=== PATIENT | female | born 1990 | race Caucasian/White ===

== ENCOUNTER 2020-12-24 11:38 | Emergency (ER) | payer OTHER, MEDICAID, SELFPAY ==
[2020-12-24 11:46] VITALS: BP 111/63; PULSE 83; RESP 16; TEMP 36.4; O2SAT 99; BMI 28.3
[2020-12-24 13:15] VITALS: BP 110/60; PULSE 70; RESP 15; O2SAT 99
[2020-12-24 13:47] LABS: Amorphous Sediment Urine 2+; Bacteria Urine Moderate (10-30); RBC Urine None Seen (0-5/HPF); Squamous Epithelial Cell Urine 10-30 /HPF (0-5/HPF); WBC Urine 5-10/HPF (0-5/HPF)
[2020-12-24 13:48] LABS: Culture Indicated Urine Cult Not Indicated
[2020-12-24] MEDS: LIDOCAINE 1% (PF) 4 ML (13:48)
[2020-12-24] MEDS: AZITHROMYCIN 250 MG TABLET 1000 MG PO (13:48)
[2020-12-24] MEDS: cefTRIAXone 2,000 MG VIAL 1000 MG IM (13:48)
--- NOTE | 2020-12-24 13:49 | ED.BACK ---
HPI - Back Pain/Injury <EDDIE Fleming - Last Filed: 12/24/20 15:42> General Chief Complaint: Back Pain/Injury Stated Complaint: poss Kidney infection Time Seen by Provider: 12/24/20 13:20 History of Present Illness HPI Narrative: 30-year-old female presents to the emergency department with complaint of lower abdominal pain which she states started 2 weeks ago. She has had 3 emergency department visits for this in the last 2 weeks and received treatment for chlamydia at [facility] ED 2 weeks ago and did not fill the doxycycline prescription. She states that she has no money, and she is going through a change of her insurance and has not been able to get her medication filled. She states that she does not have a way to pay for anything [id number]. She reports that her vaginal discharge is still abnormal, she reports that her symptoms got better for a couple days and then got worse again. She denies having any fever, states that maybe she is having some chills today here in the emergency department, her vital signs are within normal limits she is afebrile at this time. She reports that she is concerned about kidney stones she states that she used to have kidney infections when she has to drink alcohol. She reports that she does not drink alcohol any longer. She denies any dizziness, back pain, right lower quadrant pain, abdominal tenderness, her last bowel movement was last night and it was normal for her, she denies any vomiting. MD Complaint: other Onset (ago): week(s) (2) Duration: progressively worsening Similar Symptoms Previously: Yes Related Data Allergies Allergy/AdvReac Type Severity Reaction Status Date / Time No Known Drug Allergies Allergy Verified 12/24/20 13:40 Review of Systems <EDDIE Fleming - Last Filed: 12/24/20 15:42> Review of Systems Narrative: General: denies fever, chills Head/Neck: denies headache, neck pain Eyes: denies visual changes, eye pain Cardio: denies chest pain, palpitations Respiratory: denies shortness of breath, cough GI: Endorses generalized lower abdominal pain and pelvic discomfort, endorses nausea, denies vomiting, or diarrhea, denies abdominal tenderness or severe pain : denies dysuria, hematuria, endorses vaginal discharge is abnormal and similar to when she was diagnosed with chlamydia 2 weeks ago. MSK: denies joint pain, muscle weakness Skin: denies rash, itching Neuro: denies numbness, tingling Patient History <EDDIE Fleming - Last Filed: 12/24/20 15:42> Social History Smoking Status: Current every day smoker Smoking Status: Current every day smoker tobacco type: cigarettes Substance Use Type: marijuana Exam <EDDIE Fleming - Last Filed: 12/24/20 15:42> Narrative Exam Narrative: Independently reviewed vitals signs and nursing notes. General: Awake, alert, nontoxic appearing, no cardiorespiratory distress, afebrile Head/Neck: Atraumatic, neck full range of motion Eyes: EOMI, conjunctiva normal Nose: nares patent, no rhinorrhea Mouth/Throat: moist mucus membranes, posterior pharynx normal, no oral lesions Cardio: Regular rate and rhythm, no peripheral edema, no diaphoresis Respiratory: respirations unlabored without wheezing, stridor, or rales. No retractions. GI: Abdomen soft, nontender to palpation, MSK: Moves all extremities, neurovascularly intact Skin: Normal capillary refill, no rash, normal color for ethnicity Neuro: Normal speech and cognition, normal gait Initial Vital Signs Initial Vital Signs: Vital Signs Temperature 97.5 F L 12/24/20 11:46 Pulse Rate 83 12/24/20 11:46 Respiratory Rate 16 12/24/20 11:46 Blood Pressure 111/63 12/24/20 11:46 Pulse Oximetry 99 12/24/20 11:46 <David Arnold MD - Last Filed: 12/24/20 18:30> Initial Vital Signs Initial Vital Signs: Vital Signs Temperature 97.5 F L 12/24/20 11:46 Pulse Rate 83 12/24/20 11:46 Respiratory Rate 16 12/24/20 11:46 Blood Pressure 111/63 12/24/20 11:46 Pulse Oximetry 99 12/24/20 11:46 Course <EDDIE Fleming - Last Filed: 12/24/20 15:42> Orders Ordered: ED Orders 12/24/20 11:55 Chlamydia Gonorrhea PCR -URINE Stat Urine Microscopic Stat 12/24/20 14:21 Complete Blood Count NO DIFF Stat Comprehensive Metabolic Panel Stat Discontinued Medications Azithromycin (Azithromycin 250 Mg Tablet) 1,000 mg PO NOW ONE Stop: 12/24/20 13:37 Last Admin: 12/24/20 13:48 Dose: 1,000 mg Documented by: ÁLVARO Ceftriaxone Sodium (Ceftriaxone 2,000 Mg Vial) 1,000 mg IM NOW ONE Stop: 12/24/20 13:37 Last Admin: 12/24/20 13:48 Dose: 1,000 mg Documented by: ÁLVARO Doxycycline Hyclate (Doxycycline Hyclate 100 Mg Tablet) 100 mg PO NOW ONE Stop: 12/24/20 13:37 Last Admin: 12/24/20 13:49 Dose: Not Given Documented by: ÁLVARO Vital Signs Vital signs: Vital Signs - 8 hr 12/24/20 11:46 12/24/20 13:15 Temperature 97.5 F L Pulse Rate 83 70 Respiratory Rate 16 15 Blood Pressure 111/63 110/60 Pulse Oximetry 99 99 <David Arnold MD - Last Filed: 12/24/20 18:30> Orders Ordered: ED Orders 12/24/20 11:55 Chlamydia Gonorrhea PCR -URINE Stat Urine Microscopic Stat 12/24/20 14:21 Complete Blood Count NO DIFF Stat Comprehensive Metabolic Panel Stat Discontinued Medications Azithromycin (Azithromycin 250 Mg Tablet) 1,000 mg PO NOW ONE Stop: 12/24/20 13:37 Last Admin: 12/24/20 13:48 Dose: 1,000 mg Documented by: ÁLVARO Ceftriaxone Sodium (Ceftriaxone 2,000 Mg Vial) 1,000 mg IM NOW ONE Stop: 12/24/20 13:37 Last Admin: 12/24/20 13:48 Dose: 1,000 mg Documented by: ÁLVARO Doxycycline Hyclate (Doxycycline Hyclate 100 Mg Tablet) 100 mg PO NOW ONE Stop: 12/24/20 13:37 Last Admin: 12/24/20 13:49 Dose: Not Given Documented by: ÁLVARO Vital Signs Vital signs: Vital Signs - 8 hr 12/24/20 11:46 12/24/20 13:15 Temperature 97.5 F L Pulse Rate 83 70 Respiratory Rate 16 15 Blood Pressure 111/63 110/60 Pulse Oximetry 99 99 MDM - Back Pain/Injury <EDDIE Fleming - Last Filed: 12/24/20 15:42> Lab Data Result diagrams: 12/24/20 14:21 12/24/20 14:21 Labs: Lab Results 12/24/20 12/24/20 12/24/20 Range/Units 11:55 11:55 14:21 WBC 8.9 (4.5-11.0) X10^3/uL RBC 3.95 L (4.0-5.2) X10^6/uL Hgb 12.1 (12.0-16.0) g/dL Hct 37.4 (36-46) % MCV 94.8 (80-100) fL MCH 30.6 (26-34) PG MCHC 32.3 (30-36) % RDW 13.7 (11.6-14.8) % Plt Count 217 (150-400) X10^3/uL Sodium (137-145) mmol/L Potassium (3.4-5.1) mmol/L Chloride (98-107) mmol/L Carbon Dioxide (22-32) mmol/L BUN (7-17) mg/dL Creatinine (0.52-1.04) mg/dL Estimated GFR (>60) mL/min BUN/Creatinine Ratio (6-22) Glucose (70-100) mg/dL Calcium (8.4-10.2) mg/dL Total Bilirubin (0.2-1.3) mg/dL AST (14-36) IU/L ALT (<35) IU/L Alkaline Phosphatase (38-126) U/L Total Protein (6.3-8.2) g/dL Albumin (3.5-5.0) g/dL Globulin (1.7-4.1) g/dL Albumin/Globulin Ratio (1.0-2.8) Urine RBC None seen (0-5/HPF) Urine WBC 5-10/hpf H (0-5/HPF) Ur Squamous Epith Cells 10-30 /hpf H (0-5/HPF) Amorphous Sediment 2+ Urine Bacteria Moderate (10-30) H (None) Ur Culture Indicated? Cult not indicated Ur Chlamydia DNA (PCR) Not detected N gonorrhoeae DNA (PCR) Not detected 12/24/20 Range/Units 14:21 WBC (4.5-11.0) X10^3/uL RBC (4.0-5.2) X10^6/uL Hgb (12.0-16.0) g/dL Hct (36-46) % MCV (80-100) fL MCH (26-34) PG MCHC (30-36) % RDW (11.6-14.8) % Plt Count (150-400) X10^3/uL Sodium 139 (137-145) mmol/L Potassium 4.2 (3.4-5.1) mmol/L Chloride 102 (98-107) mmol/L Carbon Dioxide 30 (22-32) mmol/L BUN 8 (7-17) mg/dL Creatinine 0.46 L (0.52-1.04) mg/dL Estimated GFR > 60.0 (>60) mL/min BUN/Creatinine Ratio 17.4 (6-22) Glucose 98 (70-100) mg/dL Calcium 8.9 (8.4-10.2) mg/dL Total Bilirubin < 0.1 L (0.2-1.3) mg/dL AST 19 (14-36) IU/L ALT 16 (<35) IU/L Alkaline Phosphatase 76 (38-126) U/L Total Protein 6.9 (6.3-8.2) g/dL Albumin 4.1 (3.5-5.0) g/dL Globulin 2.8 (1.7-4.1) g/dL Albumin/Globulin Ratio 1.5 (1.0-2.8) Urine RBC (0-5/HPF) Urine WBC (0-5/HPF) Ur Squamous Epith Cells (0-5/HPF) Amorphous Sediment Urine Bacteria (None) Ur Culture Indicated? Ur Chlamydia DNA (PCR) N gonorrhoeae DNA (PCR) Point of Care Testing Test Results Negative Urine Dip Bedside Urine Glucose Negative Bedside Urine Bilirubin - Negative Bedside Urine Ketone - Negative Urine Specific [place] 1.015 Bedside Urine Occult Blood - Negative Bedside Urine pH 8.0 Bedside Urine Protein - Negative Bedside Urine Urobilinogen - Negative Bedside Urine Nitrite - Negative Bedside Urine Leukocytes +++ 500 Esterase MDM Narrative Medical decision making narrative: 30-year-old female presents the emergency department with complaint of abnormal vaginal discharge, pelvic and lower abdominal pain, and concern for recurrence of chlamydia infection which she was treated for 2 weeks ago. She has had 3 emergency department visits for this same problem over the last 3 weeks, she did not fill her doxycycline prescription as she states she does not have any money and her insurance would not cover it. She reported that she did not have any money to cherry picker operator another prescription today. Her UA was positive for wbc's, squamous epithelial cells, and bacteria the were no red blood cells in her urine. She did not have any CVA tenderness, she is afebrile, does not have tachycardia. Her exam and history are reassuring that this is not appendicitis, pancreatitis, diverticulitis, renal calculi, or pyelonephritis. This is most likely a worsening of her chlamydia infection and she is unable to cherry picker operator a prescription of doxycycline for this. I opted to treat her empirically with Rocephin and azithromycin today, for high risk of treatment failure if I did not. When her gonorrhea and chlamydia test came back negative discussion with patient about this being a possible UTI unrelated to her previous chlamydia infection. Wanted to treat patient with Bactrim for the next 7 days, however patient opted to leave before completing treatment, patient also did mention that she would not be able to fill a prescription if it was given to her. Patient given strict return to the emergency department precautions including fever, nausea vomiting, worsening abdominal pain, changes to her vaginal discharge. Patient is appropriate and amenable to discharge home. Vital signs are stable on repeat examination is unremarkable. Patient has been informed of results. Patient has been given strict return to ER precautions for any new or worsening symptoms. Patient understands to follow up closely with outpatient providers as instructed. Patient understands plan and agrees to discharge home. All questions and concerns answered at this time. Patient left prior to receiving her discharge instructions or Bactrim dosing. <David Arnold MD - Last Filed: 12/24/20 18:30> Lab Data Labs: Lab Results 12/24/20 12/24/20 12/24/20 Range/Units 11:55 11:55 14:21 WBC 8.9 (4.5-11.0) X10^3/uL RBC 3.95 L (4.0-5.2) X10^6/uL Hgb 12.1 (12.0-16.0) g/dL Hct 37.4 (36-46) % MCV 94.8 (80-100) fL MCH 30.6 (26-34) PG MCHC 32.3 (30-36) % RDW 13.7 (11.6-14.8) % Plt Count 217 (150-400) X10^3/uL Sodium (137-145) mmol/L Potassium (3.4-5.1) mmol/L Chloride (98-107) mmol/L Carbon Dioxide (22-32) mmol/L BUN (7-17) mg/dL Creatinine (0.52-1.04) mg/dL Estimated GFR (>60) mL/min BUN/Creatinine Ratio (6-22) Glucose (70-100) mg/dL Calcium (8.4-10.2) mg/dL Total Bilirubin (0.2-1.3) mg/dL AST (14-36) IU/L ALT (<35) IU/L Alkaline Phosphatase (38-126) U/L Total Protein (6.3-8.2) g/dL Albumin (3.5-5.0) g/dL Globulin (1.7-4.1) g/dL Albumin/Globulin Ratio (1.0-2.8) Urine RBC None seen (0-5/HPF) Urine WBC 5-10/hpf H (0-5/HPF) Ur Squamous Epith Cells 10-30 /hpf H (0-5/HPF) Amorphous Sediment 2+ Urine Bacteria Moderate (10-30) H (None) Ur Culture Indicated? Cult not indicated Ur Chlamydia DNA (PCR) Not detected N gonorrhoeae DNA (PCR) Not detected 12/24/20 Range/Units 14:21 WBC (4.5-11.0) X10^3/uL RBC (4.0-5.2) X10^6/uL Hgb (12.0-16.0) g/dL Hct (36-46) % MCV (80-100) fL MCH (26-34) PG MCHC (30-36) % RDW (11.6-14.8) % Plt Count (150-400) X10^3/uL Sodium 139 (137-145) mmol/L Potassium 4.2 (3.4-5.1) mmol/L Chloride 102 (98-107) mmol/L Carbon Dioxide 30 (22-32) mmol/L BUN 8 (7-17) mg/dL Creatinine 0.46 L (0.52-1.04) mg/dL Estimated GFR > 60.0 (>60) mL/min BUN/Creatinine Ratio 17.4 (6-22) Glucose 98 (70-100) mg/dL Calcium 8.9 (8.4-10.2) mg/dL Total Bilirubin < 0.1 L (0.2-1.3) mg/dL AST 19 (14-36) IU/L ALT 16 (<35) IU/L Alkaline Phosphatase 76 (38-126) U/L Total Protein 6.9 (6.3-8.2) g/dL Albumin 4.1 (3.5-5.0) g/dL Globulin 2.8 (1.7-4.1) g/dL Albumin/Globulin Ratio 1.5 (1.0-2.8) Urine RBC (0-5/HPF) Urine WBC (0-5/HPF) Ur Squamous Epith Cells (0-5/HPF) Amorphous Sediment Urine Bacteria (None) Ur Culture Indicated? Ur Chlamydia DNA (PCR) N gonorrhoeae DNA (PCR) Point of Care Testing Test Results Negative Urine Dip Bedside Urine Glucose Negative Bedside Urine Bilirubin - Negative Bedside Urine Ketone - Negative Urine Specific [place] 1.015 Bedside Urine Occult Blood - Negative Bedside Urine pH 8.0 Bedside Urine Protein - Negative Bedside Urine Urobilinogen - Negative Bedside Urine Nitrite - Negative Bedside Urine Leukocytes +++ 500 Esterase Discharge Plan Departure Patient Disposition: Home Clinical Impression: Chlamydia infection UTI (urinary tract infection) Qualifiers: Urinary tract infection type: acute cystitis Hematuria presence: without hematuria Qualified Code(s): N30.00 - Acute cystitis without hematuria <David Arnold MD - Last Filed: 12/24/20 18:30> Cosign ED Attending Cosignature Attestation: I was immediately available in the department for consultation. This documentation has been reviewed and I agree with assessment and plan. Supervised by David Arnold MD
[2020-12-24 14:45] LABS: Alanine Aminotransferase 16 IU/L (<35); Albumin 4.1 g/dL (3.5-5.0); Albumin Globulin Ratio 1.5 (1.0-2.8); Alkaline Phosphatase 76 U/L (38-126); Aspartate Aminotransferase 19 IU/L (14-36); BUN Creatinine Ratio 17.4 (6-22); Blood Urea Nitrogen 8 mg/dL (7-17); Calcium 8.9 mg/dL (8.4-10.2); Carbon Dioxide 30 mmol/L (22-32); Chloride 102 mmol/L (98-107); Estimated Glomerular Filt Rate > 60.0 mL/min (>60); Globulin 2.8 g/dL (1.7-4.1); Glucose 98 mg/dL (70-100); HEMOLYSIS < 15 (0-50); Potassium 4.2 mmol/L (3.4-5.1); Sodium 139 mmol/L (137-145); Total Protein 6.9 g/dL (6.3-8.2)
[2020-12-24 14:46] LABS: Bilirubin Total < 0.1 mg/dL (0.2-1.3)
[2020-12-24 15:10] LABS: Hematocrit 37.4 % (36-46); Hemoglobin 12.1 g/dL (12.0-16.0); Mean Corpuscular HGB Conc 32.3 % (30-36); Mean Corpuscular Hemoglobin 30.6 PG (26-34); Mean Corpuscular Volume 94.8 fL (80-100); Platelet Count 217 X10^3/uL (150-400); Red Blood Cell Count 3.95 X10^6/uL (4.0-5.2); Red Cell Distribution Width 13.7 % (11.6-14.8); White Blood Cell Count 8.9 X10^3/uL (4.5-11.0)
[2020-12-24 15:16] LABS: Urine N gonorrhoeae NOT DETECTED
[2020-12-24 15:18] LABS: Urine Chlamydia NOT DETECTED
== END 2020-12-24 15:38 | disposition home or self-care (01) ==
PROVIDERS: Emergency Medicine; Emergency Provider Nurse Practitioner Critical Care Medicine
DX: N30.00 Acute cystitis without hematuria (principal)
CPT/HCPCS: 36415; 80053; 81003; 81015; 81025; 85027; 87491; 87591; 96372; 99283; 99284; J0696

== ENCOUNTER 2021-03-11 12:39 | Emergency (ER) | payer OTHER, MEDICAID, SELFPAY ==
[2021-03-11 12:40] VITALS: BP 114/59; PULSE 74; RESP 14; TEMP 36.6; O2SAT 99; BMI 28.3
--- NOTE | 2021-03-11 14:31 | DI.CT.S_ITS ---
PROCEDURE: CT HEAD/BRAIN WO CON INDICATIONS: fall, head injury, LOC, N/V TECHNIQUE: Noncontrast 4.5 mm thick angled axial sections acquired from the foramen magnum to the vertex, with coronal and sagittal reformats. For radiation dose reduction, the following was used: automated exposure control, adjustment of mA and/or kV according to patient size. COMPARISON: None. FINDINGS: Image quality: Excellent. CSF spaces: Basal cisterns are patent. No extra-axial fluid collections. Ventricles are normal in size and shape. Brain: No midline shift. No intracranial masses or hemorrhage. Colmenares-white matter interface is normal. Skull and face: Calvarium and visualized facial bones are intact, without suspicious lesions. Sinuses: Visualized sinuses and mastoids are clear. IMPRESSION: No acute intracranial abnormality. Dictated by: Deng Khan M.D. on 03/11/2021 at 15:12 Approved by: Deng Khan M.D. on 03/11/2021 at 15:14
--- NOTE | 2021-03-11 14:32 | ED.FALL ---
HPI - Fall <Jorge Cole DO - Last Filed: 03/18/21 04:55> General Chief Complaint: Fall Stated Complaint: Slipped on Stairs, Hit Head and Back Time Seen by Provider: 03/11/21 14:04 Source: patient Mode of arrival: Ambulatory History of Present Illness HPI Narrative: 30-year-old female smoker with prior head injuries and traumatic injuries presents with a chief complaint of an accidental slip and fall a few days ago with ongoing head pain. She was walking her dog who pulled her forcefully on slippery stairs and she slipped and fell back striking her occiput put on the stair. She does not think she had a loss of consciousness but may have had a brief episode. She vomited once yesterday. Her incident happened 3 days ago. She has ongoing head pain and feels a bit groggy and occasionally nauseated. She landed on her bottom and has pain across her lower back but no midline bony point tenderness. She denies the loss of control of bowel or bladder. She has no pain radiating down 1 leg or the other. She denies any numbness, tingling or weakness. Related Data Allergies Allergy/AdvReac Type Severity Reaction Status Date / Time No Known Drug Allergies Allergy Verified 03/11/21 12:40 Review of Systems <Jorge Cole DO - Last Filed: 03/18/21 04:55> Review of Systems Narrative: GENERAL: Denies chills, fatigue, malaise, fever, sweats. HEENT: Denies sinus pain, ear pain, sore throat, difficulty swallowing, dizziness. RESPIRATORY: Denies dyspnea, cough, wheezing, hemoptysis, sputum. CARDIOVASCULAR: Denies chest pain, palpitations, orthopnea, edema, GASTROINTESTINAL:see HPI : Denies dysuria, frequency, incontinence, hematuria, urinary retention. MUSCULOSKELETAL: see HPI SKIN: Denies rash, skin lesions, or other NEUROLOGIC: see HPI PSYCHIATRIC: No concerning psychosocial issues. 12 point review of systems is negative except for those stated above Patient History <Jorge Cole DO - Last Filed: 03/18/21 04:55> Social History Smoking Status: Current every day smoker Smoking Status: Current every day smoker tobacco type: cigarettes alcohol intake frequency: holidays/special occasions only Substance Use Type: marijuana Exam <Jorge Cole DO - Last Filed: 03/18/21 04:55> Narrative Exam Narrative: GENERAL: 30 [] year old patient appears stated age. Well-developed patient, in mild distress. GCS 15 HEAD: Minimal swelling and tenderness to palpation at the right occiput, no evidence of depressed skull fracture EYES: Pupils equal round and reactive. No hyphema Extraocular motions intact. No scleral icterus. No injection or drainage. ENT: Nose without bleeding, purulent drainage. no nasal septal hematoma without erythema, tonsillar hypertrophy or exudate. Airway patent. NECK: No midline tenderness, step-offs or crepitance, no change with axial load CARDIOVASCULAR: Regular rate and rhythm without murmurs, gallops, or rubs. RESPIRATORY: Clear to auscultation. Breath sounds equal bilaterally. No wheezes, rales, or rhonchi. GASTROINTESTINAL: Abdomen soft, non-tender, nondistended. EXTREMITIES: No edema or joint tenderness. BACK: No midline tenderness, no step-offs, crepitance, subcu emphysema, no bruising, swelling or erythema. Minimally tender across much of her lower back. No saddle anesthesia or radiation. Sensation intact in bilateral lower extremities. Bilateral patellar reflexes intact. NEURO: AOx3. SKIN: No rash or erythema of visible areas Initial Vital Signs Initial Vital Signs: Vital Signs Temperature 97.9 F 03/11/21 12:40 Pulse Rate 74 03/11/21 12:40 Respiratory Rate 14 03/11/21 12:40 Blood Pressure 114/59 L 03/11/21 12:40 Pulse Oximetry 99 03/11/21 12:40 <JESSICA FlemingP - Last Filed: 03/11/21 17:23> Initial Vital Signs Initial Vital Signs: Vital Signs Temperature 97.9 F 03/11/21 12:40 Pulse Rate 74 03/11/21 12:40 Respiratory Rate 14 03/11/21 12:40 Blood Pressure 114/59 L 03/11/21 12:40 Pulse Oximetry 99 03/11/21 12:40 Course <Jorge Cole DO - Last Filed: 03/18/21 04:55> Orders Ordered: Discontinued Medications Ketorolac Tromethamine (Ketorolac 30 Mg/Ml Vial) 15 mg IM NOW ONE Stop: 03/11/21 15:34 Last Admin: 03/11/21 15:45 Dose: 15 mg Documented by: SPIKE Ondansetron HCl (Ondansetron 4 Mg Odt) 4 mg SL NOW ONE Stop: 03/11/21 15:34 Last Admin: 03/11/21 15:45 Dose: 4 mg Documented by: SPIKE Vital Signs Vital signs: Vital Signs - 8 hr 03/11/21 12:40 03/11/21 15:56 Temperature 97.9 F Pulse Rate 74 68 Respiratory Rate 14 18 Blood Pressure 114/59 L 123/82 Pulse Oximetry 99 98 <EDDIE Fleming - Last Filed: 03/11/21 17:23> Orders Ordered: Discontinued Medications Ketorolac Tromethamine (Ketorolac 30 Mg/Ml Vial) 15 mg IM NOW ONE Stop: 03/11/21 15:34 Last Admin: 03/11/21 15:45 Dose: 15 mg Documented by: SPIKE Ondansetron HCl (Ondansetron 4 Mg Odt) 4 mg SL NOW ONE Stop: 03/11/21 15:34 Last Admin: 03/11/21 15:45 Dose: 4 mg Documented by: SPIKE Vital Signs Vital signs: Vital Signs - 8 hr 03/11/21 12:40 03/11/21 15:56 Temperature 97.9 F Pulse Rate 74 68 Respiratory Rate 14 18 Blood Pressure 114/59 L 123/82 Pulse Oximetry 99 98 MDM - Fall <Jorge Cole DO - Last Filed: 03/18/21 04:55> Lab Data Labs: Point of Care Testing Test Results Negative <EDDIE Fleming - Last Filed: 03/11/21 17:23> Lab Data Labs: Point of Care Testing Test Results Negative Imaging Data CT scan - head: Radiologist's Impression: PROCEDURE:? CT HEAD/BRAIN WO CON ? INDICATIONS:? fall, head injury, LOC, N/V ? TECHNIQUE:? Noncontrast 4.5 mm thick angled axial sections acquired from the foramen magnum to the vertex, with coronal and sagittal reformats.? For radiation dose reduction, the following was used:? automated exposure control, adjustment of mA and/or kV according to patient size.? ? COMPARISON:? None. ? FINDINGS:? Image quality:? Excellent.? ? CSF spaces:? Basal cisterns are patent.? No extra-axial fluid collections.? Ventricles are normal in size and shape.? ? Brain:? No midline shift.? No intracranial masses or hemorrhage.? Colmenares-white matter interface is normal.? ? Skull and face:? Calvarium and visualized facial bones are intact, without suspicious lesions.? ? Sinuses:? Visualized sinuses and mastoids are clear.? ? IMPRESSION:? No acute intracranial abnormality. ? ? Dictated by: Deng Khan M.D. on 03/11/2021 at 15:12 ? ? Approved by: Deng Khan M.D. on 03/11/2021 at 15:14 ? MDM Narrative Medical decision making narrative: 30-year-old female presents to the emergency department for head injury which happened today, she slipped on her stairs and fell back hitting the occiput of her head. She denies loss of consciousness, she did not take any blood thinners, she has had a headache and vomited yesterday x1. This is most likely a concussion with postconcussive syndrome. Patient has not had any mental status changes today, ambulates with a steady gait, no dizziness, or systemic symptoms. She is feeling better after Toradol and Zofran, instructed to hydrate at home. Patient did not have any nystagmus on exam, pupils are equal and reactive, EOMs intact, without any focal neurologic deficit. Patient is appropriate and amenable to discharge home. Vital signs are stable on repeat examination is unremarkable. Patient has been informed of results. Patient has been given strict return to ER precautions for any new or worsening symptoms. Patient understands to follow up closely with outpatient providers as instructed. Patient understands plan and agrees to discharge home. All questions and concerns answered at this time. Discharge Plan Departure Patient Disposition: Home Clinical Impression: Concussion with loss of consciousness, Closed head injury Instructions: Concussion, Closed Head Injury Activity Restrictions/Additional Instructions: *You have been diagnosed with a close head injury and likely concussion. As a general rule for concussions, if anything ever brings on symptoms like headache, dizziness, weakness, sensitivity to light or sound please stop doing whatever that was and rest your brain. Brains get injured similar to your body and are sensitive after getting injured. It may be a few extra days of lying low and taking it easy for this to start to get better. Please use the Zofran as needed for nausea, and brain picker the anti-inflammatories from her pharmacy. Please do not take any more ibuprofen today, Tylenol is okay. Tomorrow you may start taking ibuprofen again but remember to eat food and drink water with it. Please return to the emergency department if you have any new or worsening of your symptoms. *What to do: *Please continue to take your regular medications as directed. [x ] New medication prescriptions sent to your pharmacy: [ [facility]] [ ] New medication written as a paper prescription [ ] No new medications given *Please follow up with your primary care provider in 2-3 days, call for an appointment. Let them know you were seen in the Emergency Department and that we ask that you be seen in follow up. We will electronically transmit a record of today's note if your PCP is in our system *If you do not have a primary care provider please contact the [facility] Resource line at [phone]. They will ask some questions about your medical history and help get you set up with a doctor in the community. *Return to Emergency Department if you should have any new, worsening or concerning symptoms, such as [fever greater than 101F, chills, worsening pain, persistent vomiting or other bothersome symptoms] ED Sign-out <Jorge Cole DO - Last Filed: 03/18/21 04:55> Cosign ED Attending Keriature Attestation: I was immediately available in the department for consultation. This documentation has been reviewed and I agree with assessment and plan. Supervised by Jorge Cole DO
[2021-03-11] MEDS: KETOROLAC 30 MG/ML VIAL 15 MG IM (15:45)
[2021-03-11] MEDS: ONDANSETRON 4 MG ODT SL (15:45)
[2021-03-11 15:56] VITALS: BP 123/82; PULSE 68; RESP 18; O2SAT 98
== END 2021-03-11 15:57 | disposition home or self-care (01) ==
PROVIDERS: Emergency Provider Nurse Practitioner Critical Care Medicine
DX: S06.0X1A Concussion with loss of consciousness of 30 minutes or less, initial encounter (principal); W01.198A Fall on same level from slipping, tripping and stumbling with subsequent striking against other object, initial encounter; Y93.K1 Activity, walking an animal
CPT/HCPCS: 70450; 81025; 96372; 99283; 99284; J1885